=== PATIENT | male | born 1955 | race Caucasian/White ===

== ENCOUNTER 2016-08-23 23:39 | Inpatient (IN) | payer MEDICAID ==
[~2016-08-23] VITALS: Ht 180.3 cm; Wt 117.0 kg
[~2016-08-23 23:39] MED LIST: ALBU18; AMIO200T33 PO; ASPI-247; CLOP75TA41 PO; FURO20TA3 PO; HYDROCODON-ACETAMINOPHEN PO; LOSA25TA9 PO; MAGN400T5 OR; MET50T PO; PANT1INJ3 PO; POTA20TA53 PO
[2016-08-24 00:27] LABS: Basophils # (auto) 0 uL; Basophils % (auto) 0.3 % (0.0-2.0); DEFINITIVE VIEW TRANSMISSION; Eosinophils # (auto) 0.1 uL; Eosinophils % (auto) 0.9 % (0.0-7.0); Hematocrit 31.1 % (41.0-53.0); Hemoglobin 9.7 g/dL (13.5-17.5); Lymphocytes # (auto) 1.1 uL; Lymphocytes % (auto) 17.3 % (10.0-50.0); Mean Corpuscular Hemoglobin 20.8 pg (28.0-32.0); Mean Corpuscular Hgb Conc. 31.2 g/dL (32.0-36.0); Mean Corpuscular Volume 66.7 fL (80.0-100.0); Mean Platelet Volume 9.4 fL (7.4-10.4); Monocytes # (auto) 0.8 uL; Monocytes % (auto) 13.1 % (0.0-12.0); Neutrophils # (auto) 4.1 uL; Neutrophils % (auto) 68.4 % (37.0-80.0); Platelet Count (auto) 189 10^3/uL (140-450); Red Cell Distribution Width 16.5 % (11.6-16.0); White Blood Cell 6.1 10^3/uL (4.4-10.8)
[2016-08-24 00:33] LABS: Albumin 3.2 g/dL (3.4-5.0); BUN/Creatinine Ratio 27.4; Magnesium 2.1 mg/dL (1.6-2.6); Potassium 4.6 mmol/L (3.5-5.1)
[2016-08-24 00:36] LABS: Bilirubin, Total 0.6 mg/dL (0.2-1.0); Total Protein 8.3 g/dL (6.4-8.2)
[2016-08-24 00:43] LABS: B-Type Natriuretic Peptide 641.32 pg/mL (0-100)
[2016-08-24] MEDS ORDERED: FUROSEMIDE 40 MG/4 ML VIAL IV ONE (01:30)
[2016-08-24 01:50] LABS: Urine Bilirubin Negative (Negative); Urine Color Yellow (Yellow); Urine Glucose TRACE mg/dL (Normal); Urine Hyaline Cast FEW /lpf (0 - 2); Urine Ketone Negative (Negative); Urine Nitrite Negative (Negative); Urine RBC 9 /hpf (0 - 3); Urine Squamous Epithelial Cell FEW /hpf (<5); Urine Urobilinogen Normal (Negative); Urine pH 5.5 (5.0-8.0)
[2016-08-24 01:52] LABS: Urine Blood 1+ /uL (Negative)
[2016-08-24] MEDS ORDERED: ACETAMINOPHEN 325 MG TAB PO PRN (06:00)
[2016-08-24] MEDS ORDERED: DEXTROSE (50%) 50ML SYRG IV PRN (06:00)
[2016-08-24] MEDS ORDERED: ONDANSETRON HCL 4 MG/2 ML VIAL IV PRN (06:00)
[2016-08-24] MEDS ORDERED: FUROSEMIDE 40 MG TAB PO SCH (06:00)
[2016-08-24] MEDS: ACCU-CHEK COMFORT CURVE STRIP VI SCH ×3 (06:30→17:47)
[2016-08-24] MEDS: InsuLIN REG 1unit/0.01ml Soln (100units/ml) SC SCH ×3 (06:32→17:52)
[2016-08-24] MEDS: ALBUTEROL SULF 2.5 MG/0.5ML(0.5%) NEB SOLN NEB PRN ×2 (06:35→19:38)
[2016-08-24 09:49] VITALS: BP 126/82
[2016-08-24] MEDS: CLOPIDOGREL BISULFATE 75 MG TAB PO SCH (09:52)
[2016-08-24] MEDS: METOPROLOL TARTRATE 25 MG TAB PO SCH ×2 (09:53→21:30)
[2016-08-24] MEDS: AMIODARONE HCL 200 MG TAB PO SCH (09:53)
[2016-08-24] MEDS: POTASSIUM CHL 10 Meq TABLET PO SCH ×2 (09:53→21:30)
[2016-08-24] MEDS: LOSARTAN POTASSIUM 25 MG TAB PO SCH (09:54)
[2016-08-24] MEDS: PANTOPRAZOLE 40 MG TAB PO SCH (09:54)
[2016-08-24] MEDS: ASPirin 81 mg TAB PO SCH (09:54)
[2016-08-24] MEDS ORDERED: ENOXAPARIN SOD 40 MG/0.4 ML SYRINGE SC SCH (10:00)
[2016-08-24 17:00] VITALS: BP 120/73
[2016-08-24] MEDS: HYDROcodone-ACET 5/325MG TAB PO PRN (17:44)
[2016-08-24] MEDS: FUROSEMIDE 40 MG/4 ML VIAL IV SCH (17:45)
[2016-08-24 22:00] VITALS: BP 121/71
[2016-08-25] MEDS: ACCU-CHEK COMFORT CURVE STRIP VI SCH ×2 (00:48→06:01)
[2016-08-25] MEDS: InsuLIN REG 1unit/0.01ml Soln (100units/ml) SC SCH ×2 (00:49→06:00)
[2016-08-25] MEDS: HYDROcodone-ACET 5/325MG TAB PO PRN ×2 (05:01→09:53)
[2016-08-25 05:20] VITALS: BP 123/68
[2016-08-25] MEDS: FUROSEMIDE 40 MG/4 ML VIAL IV SCH (05:58)
[2016-08-25 06:35] LABS: Basophils # (auto) 0 uL; Basophils % (auto) 0.2 % (0.0-2.0); DEFINITIVE VIEW TRANSMISSION; Eosinophils # (auto) 0.1 uL; Eosinophils % (auto) 1.4 % (0.0-7.0); Hematocrit 30.4 % (41.0-53.0); Hemoglobin 9.4 g/dL (13.5-17.5); Lymphocytes # (auto) 0.9 uL; Lymphocytes % (auto) 18.2 % (10.0-50.0); Mean Corpuscular Hemoglobin 20.6 pg (28.0-32.0); Mean Corpuscular Hgb Conc. 30.9 g/dL (32.0-36.0); Mean Corpuscular Volume 66.8 fL (80.0-100.0); Mean Platelet Volume 9.3 fL (7.4-10.4); Monocytes # (auto) 0.6 uL; Neutrophils # (auto) 3.4 uL; Neutrophils % (auto) 69.2 % (37.0-80.0); Platelet Count (auto) 204 10^3/uL (140-450); Red Cell Distribution Width 16.6 % (11.6-16.0)
[2016-08-25] MEDS: ALBUTEROL SULF 2.5 MG/0.5ML(0.5%) NEB SOLN NEB PRN ×2 (06:36→10:00)
[2016-08-25 06:45] LABS: Albumin 3.3 g/dL (3.4-5.0); BUN/Creatinine Ratio 32.7; Bilirubin, Total 0.7 mg/dL (0.2-1.0); Calcium 8.8 mg/dL (8.5-10.1); Potassium 4.3 mmol/L (3.5-5.1); Total Protein 8.3 g/dL (6.4-8.2)
[2016-08-25 06:52] LABS: B-Type Natriuretic Peptide 323.08 pg/mL (0-100); Temperature: 21.5 C (20.0-25.0)
[2016-08-25 08:38] VITALS: BP 131/68
[2016-08-25] MEDS: POTASSIUM CHL 10 Meq TABLET PO SCH (09:46)
[2016-08-25] MEDS: METOPROLOL TARTRATE 25 MG TAB PO SCH (09:46)
[2016-08-25] MEDS: CLOPIDOGREL BISULFATE 75 MG TAB PO SCH (09:46)
[2016-08-25] MEDS: PANTOPRAZOLE 40 MG TAB PO SCH (09:46)
[2016-08-25] MEDS: ASPirin 81 mg TAB PO SCH (09:47)
[2016-08-25] MEDS: AMIODARONE HCL 200 MG TAB PO SCH (09:47)
[2016-08-25] MEDS: LOSARTAN POTASSIUM 25 MG TAB PO SCH (09:47)
[2016-08-25 10:47] VITALS: BP 131/68
== END 2016-08-25 11:12 | disposition home or self-care (01) | DRG 194 ==
LOC: ER 23:41 → OVERFLOW 23:42 → EAST 08-24 07:56 → WEST WING 08-24 09:20
PROVIDERS: ADMIT Nurse Practitioner; ATTEND Internal Medicine
DX: I13.0 Hypertensive heart and chronic kidney disease with heart failure and stage 1 through stage 4 chronic kidney disease, or unspecified chronic kidney disease (principal); E11.22 Type 2 diabetes mellitus with diabetic chronic kidney disease; N18.3 Chronic kidney disease, stage 3 (moderate); E11.65 Type 2 diabetes mellitus with hyperglycemia; I50.43 Acute on chronic combined systolic (congestive) and diastolic (congestive) heart failure; E66.9 Obesity, unspecified; D63.8 Anemia in other chronic diseases classified elsewhere; R16.1 Splenomegaly, not elsewhere classified; E78.00 Pure hypercholesterolemia, unspecified; K40.91 Unilateral inguinal hernia, without obstruction or gangrene, recurrent; K80.20 Calculus of gallbladder without cholecystitis without obstruction; I25.10 Atherosclerotic heart disease of native coronary artery without angina pectoris; Z68.36 Body mass index [BMI] 36.0-36.9, adult; I25.2 Old myocardial infarction; Z95.0 Presence of cardiac pacemaker; Z95.810 Presence of automatic (implantable) cardiac defibrillator; Z82.49 Family history of ischemic heart disease and other diseases of the circulatory system; Z88.8 Allergy status to other drugs, medicaments and biological substances; Z79.82 Long term (current) use of aspirin; Z79.899 Other long term (current) drug therapy; Z87.891 Personal history of nicotine dependence; Z95.1 Presence of aortocoronary bypass graft
CPT/HCPCS: 36415; 71010; 74176; 80053; 81001; 82962; 83036; 83735; 83880; 84484; 85025; 85049; 93005; 93306; 94640; 94761; 96374; J1815

== ENCOUNTER 2016-12-22 21:02 | Emergency (ER) | payer MEDICAID ==
[~2016-12-22] VITALS: Ht 177.8 cm; Wt 104.3 kg
[~2016-12-22 21:02] MED LIST changes: -AMIO200T33 PO
[2016-12-22 21:48] LABS: Basophils # (auto) 0 uL; Basophils % (auto) 0.3 % (0.0-2.0); DEFINITIVE VIEW TRANSMISSION; Eosinophils # (auto) 0.1 uL; Eosinophils % (auto) 0.9 % (0.0-7.0); Hematocrit 26.3 % (41.0-53.0); Hemoglobin 8.2 g/dL (13.5-17.5); Lymphocytes # (auto) 0.8 uL; Lymphocytes % (auto) 10.4 % (10.0-50.0); Mean Corpuscular Hemoglobin 19.1 pg (28.0-32.0); Mean Corpuscular Hgb Conc. 31.3 g/dL (32.0-36.0); Mean Corpuscular Volume 61.1 fL (80.0-100.0); Mean Platelet Volume 8.5 fL (7.4-10.4); Monocytes # (auto) 0.7 uL; Monocytes % (auto) 9.2 % (0.0-12.0); Neutrophils # (auto) 6.1 uL; Neutrophils % (auto) 79.2 % (37.0-80.0); Platelet Count (auto) 296 10^3/uL (140-450); Red Cell Distribution Width 17.6 % (11.6-16.0); White Blood Cell 7.7 10^3/uL (4.4-10.8)
[2016-12-22 22:21] LABS: Albumin 3.1 g/dL (3.4-5.0); Alkaline Phosphatase 94 U/L (45-117); Anion Gap 7 (5-15); Aspartate Aminotransferase 15 U/L (15-37); BUN/Creatinine Ratio 29.8; Bilirubin, Total 0.4 mg/dL (0.2-1.0); Blood Urea Nitrogen 54 mg/dL (7-18); Calcium 8.2 mg/dL (8.5-10.1); Carbon Dioxide 29 mmol/L (21-32); Chloride 101 mmol/L (98-107); GFR African American 50 mL/min; GFR Non-African American 41 mL/min; Glucose 230 mg/dL (74-106); Magnesium 2.3 mg/dL (1.6-2.6); Potassium 4.9 mmol/L (3.5-5.1); Sodium 137 mmol/L (136-145); Total Protein 7.9 g/dL (6.4-8.2)
[2016-12-22 22:51] LABS: Platelet Estimate Adequate
[2016-12-22 22:52] LABS: Hypochromia Moderate; Microcytosis Marked; Ovalocytes MODERATE
[2016-12-22] MEDS ORDERED: cefTRIAXone 1GM/50ML D5W 50 ML IV ONE (23:30)
[2016-12-22 23:46] LABS: INR 1.13 (0.9-1.15); Prothrombin Time 12.3 sec (9.37-12.3)
[2016-12-23] MEDS ORDERED: FUROSEMIDE 20 MG/2 ML VIAL IV ONE
[2016-12-23 00:16] LABS: B-Type Natriuretic Peptide 356.05 pg/mL (0-100); Temperature: 23.3 C (20.0-25.0)
[2016-12-23] MEDS ORDERED: FUROSEMIDE 40 MG/4 ML VIAL IV ONE (01:15)
[2016-12-23] MEDS ORDERED: IPRATROPIUM BROM 0.5 MG/2.5ML INH SOL NEB ONE (03:30)
[2016-12-23] MEDS ORDERED: ALBUTEROL SULF 2.5 MG/0.5ML(0.5%) NEB SOLN NEB ONE (03:30)
[2016-12-23 04:54] VITALS: BP 145/70
== END 2016-12-23 04:35 | disposition home or self-care (01) ==
LOC: EDBD 21:02 → ER 21:14
DX: I13.0 Hypertensive heart and chronic kidney disease with heart failure and stage 1 through stage 4 chronic kidney disease, or unspecified chronic kidney disease (principal); E11.22 Type 2 diabetes mellitus with diabetic chronic kidney disease; N18.9 Chronic kidney disease, unspecified; I50.43 Acute on chronic combined systolic (congestive) and diastolic (congestive) heart failure; N17.9 Acute kidney failure, unspecified; M10.9 Gout, unspecified; E78.5 Hyperlipidemia, unspecified; I25.2 Old myocardial infarction; Z86.73 Personal history of transient ischemic attack (TIA), and cerebral infarction without residual deficits; Z95.1 Presence of aortocoronary bypass graft; Z98.61 Coronary angioplasty status; Z87.891 Personal history of nicotine dependence
CPT/HCPCS: 36415; 71010; 80053; 83735; 83880; 84484; 84550; 85025; 85379; 85610; 85730; 93005; 93970; 94640; 96365; 96375; 99285; J0696; J1940

== ENCOUNTER 2017-09-21 01:28 | Inpatient (IN) | payer MEDICAID ==
[~2017-09-21] VITALS: Ht 185.4 cm; Wt 108.2 kg
[~2017-09-21 01:28] MED LIST changes: -ALBU18; +ATOR20TA PO; -FURO20TA3 PO; -HYDROCODON-ACETAMINOPHEN PO; +INSLISPI SC; +INSUINJ37 SC; +METO-75 PO; -PANT1INJ3 PO; -POTA20TA53 PO
[2017-09-21 02:00] LABS: Basophils # (auto) 0.1 uL; Eosinophils # (auto) 0.1 uL
[2017-09-21 02:01] LABS: Platelet Count (auto) 196 10^3/uL (140-450)
[2017-09-21 02:08] LABS: Basophils % (auto) 1.1 % (0.0-2.0); Eosinophils % (auto) 0.8 % (0.0-7.0); Lymphocytes % (auto) 13.9 % (10.0-50.0); Monocytes % (auto) 10.2 % (0.0-12.0); Neutrophils # (auto) 5.2 uL
[2017-09-21 02:09] LABS: Hematocrit 26.6 % (41.0-53.0); Hemoglobin 9.1 g/dL (13.5-17.5); Mean Corpuscular Hemoglobin 18.5 pg (28.0-32.0); Mean Corpuscular Hgb Conc. 30.6 g/dL (32.0-36.0); Mean Corpuscular Volume 60.2 fL (80.0-100.0); Monocytes # (auto) 0.7 uL; Red Blood Cells 4.92 10^6/uL (4.5-5.90); Red Cell Distribution Width 19.7 % (11.8-14.3)
[2017-09-21 02:18] LABS: INR 1.1 (0.9-1.15)
[2017-09-21 02:19] LABS: Albumin 3.2 g/dL (3.4-5.0); Anion Gap 2 (5-15); Aspartate Aminotransferase 23 U/L (15-37); BUN/Creatinine Ratio 26.8; Blood Urea Nitrogen 53 mg/dL (7-18); Calcium 7.7 mg/dL (8.5-10.1); Carbon Dioxide 29 mmol/L (21-32); Chloride 106 mmol/L (98-107); GFR African American 45 mL/min; GFR Non-African American 37 mL/min; Glucose 236 mg/dL (74-106); Magnesium 2.5 mg/dL (1.6-2.6); Potassium 5.5 mmol/L (3.5-5.1); Sodium 137 mmol/L (136-145)
[2017-09-21 02:24] LABS: Alanine Aminotransferase 25 U/L (16-61); Alkaline Phosphatase 150 U/L (45-117); Bilirubin, Total 0.3 mg/dL (0.2-1.0)
[2017-09-21 04:40] LABS: Urine Bacteria NONE SEEN /hpf (None Seen); Urine Blood TRACE /uL (Negative); Urine Hyaline Cast FEW /lpf (0 - 2); Urine Mucus FEW (None Seen); Urine Specific Gravity 1.014 (1.001-1.035); Urine WBC 1 /hpf (0 - 3)
[2017-09-21] MEDS ORDERED: FUROSEMIDE 40 MG/4 ML VIAL IV ONE (06:45)
[2017-09-21] MEDS ORDERED: DEXTROSE (50%) 50ML SYRG IV ONE (07:45)
[2017-09-21] MEDS ORDERED: SODIUM BICARBONATE 8.4 % INJ 50ML VIAL IV ONE (07:45)
[2017-09-21] MEDS ORDERED: CALCIUM GLUC 4.65meq/50ml D5AE 50 ML IV ONE (07:45)
[2017-09-21] MEDS ORDERED: InsuLIN REG 1unit/0.01ml Soln (100units/ml) IV ONE (07:45)
[2017-09-21] MEDS ORDERED: HYDROcodone-ACET 5/325MG TAB PO PRN (08:30)
[2017-09-21] MEDS ORDERED: TEMAZEPAM 15 MG CAP PO PRN (08:30)
[2017-09-21] MEDS ORDERED: LACTULOSE 20Gm/30ML SOLN PO PRN (08:30)
[2017-09-21] MEDS ORDERED: NITROGLYCERIN 0.4 MG SL TAB SL PRN (08:30)
[2017-09-21] MEDS ORDERED: PROMETHAZINE HCL 25 MG/ML 1ML IV PRN (08:30)
[2017-09-21] MEDS ORDERED: MORPHINE SULFATE 4 MG/ML SYR/VIAL IV PRN ×2 (08:30)
[2017-09-21] MEDS ORDERED: DEXTROSE (50%) 50ML SYRG IV PRN (08:30)
[2017-09-21] MEDS ORDERED: LORazepam 0.5 MG TAB PO PRN (08:30)
[2017-09-21] MEDS ORDERED: ALBUTEROL SULF 2.5 MG/0.5ML(0.5%) NEB SOLN NEB PRN (08:30)
[2017-09-21] MEDS ORDERED: ACETAMINOPHEN 500 MG TAB PO PRN (08:30)
[2017-09-21] MEDS ORDERED: INSLANTI SC (08:42)
[2017-09-21] MEDS ORDERED: BUME1TAB28 PO (08:44)
[2017-09-21 09:24] LABS: Folate (Folic Acid) 14.65 ng/mL (5.38-24)
[2017-09-21 09:30] VITALS: BP 127/73
[2017-09-21] MEDS ORDERED: METOLAZONE 5 MG TAB PO SCH (10:00)
[2017-09-21] MEDS ORDERED: ASPirin 325 MG TAB PO SCH (10:00)
[2017-09-21] MEDS: INSULIN LANTUS (GLARGINE) 1 /0.01ml (100units/ml) SC SCH ×3 (10:00→21:36)
[2017-09-21] MEDS ORDERED: FUROSEMIDE 40 MG/4 ML VIAL IV SCH (10:00)
[2017-09-21] MEDS ORDERED: CLOPIDOGREL BISULFATE 75 MG TAB PO SCH (10:00)
[2017-09-21] MEDS ORDERED: LOSARTAN POTASSIUM 25 MG TAB PO SCH (10:00)
[2017-09-21] MEDS ORDERED: ENOXAPARIN SOD 40 MG/0.4 ML SYRINGE SC SCH (10:00)
[2017-09-21] MEDS: MAGNESIUM OXIDE 400 MG TAB PO SCH ×3 (10:46→21:22)
[2017-09-21] MEDS: METOPROLOL TARTRATE 50 MG TAB PO SCH ×2 (10:47→22:10)
[2017-09-21] MEDS: IPRATROPIUM BROM 0.5 MG/2.5ML INH SOL NEB SCH ×2 (12:06→19:42)
[2017-09-21] MEDS: ALBUTEROL SULF 2.5 MG/0.5ML(0.5%) NEB SOLN NEB SCH ×2 (12:06→19:42)
[2017-09-21] MEDS: ACCU-CHEK COMFORT CURVE STRIP VI SCH ×3 (12:07→21:22)
[2017-09-21] MEDS: InsuLIN REG 1unit/0.01ml Soln (100units/ml) SC SCH ×3 (12:12→21:35)
[2017-09-21 15:08] VITALS: BP 103/53
[2017-09-21 15:44] LABS: BUN/Creatinine Ratio 29.8; Potassium 4.9 mmol/L (3.5-5.1)
[2017-09-21 16:30] VITALS: BP 129/68
[2017-09-21] MEDS: FUROSEMIDE 40 MG/4 ML VIAL IV SCH (17:17)
[2017-09-21] MEDS ORDERED: ATORVASTATIN 20 MG TAB PO SCH (18:00)
[2017-09-21 22:28] LABS: Alcohol, Urine < 3.0 mg/dL (0-5); Amphetamine Screen, Urine NEGATIVE (NEGATIVE); Barbiturate Scree,Urine NEGATIVE (NEGATIVE); Benzodiazephine Screen, Urine NEGATIVE (NEGATIVE); Cannabinoid Screen, Urine NEGATIVE (NEGATIVE); Cocaine Screen, Urine NEGATIVE (NEGATIVE); Opiate Scree,Urine NEGATIVE (NEGATIVE); Phencyclidine Screen, Urine NEGATIVE (NEGATIVE)
[2017-09-22 05:00] VITALS: BP 118/69
[2017-09-22] MEDS: FUROSEMIDE 40 MG/4 ML VIAL IV SCH (05:34)
[2017-09-22] MEDS: ACCU-CHEK COMFORT CURVE STRIP VI SCH (05:49)
[2017-09-22] MEDS: InsuLIN REG 1unit/0.01ml Soln (100units/ml) SC SCH (05:49)
[2017-09-22 06:27] LABS: Basophils # (auto) 0.1 uL; Eosinophils # (auto) 0.1 uL; Mean Corpuscular Hemoglobin 18.4 pg (28.0-32.0); Monocytes # (auto) 0.7 uL; Neutrophils # (auto) 5.2 uL; Nucleated Red Blood Cells % 0.1 %; White Blood Cell 7.3 10^3/uL (4.4-10.8)
[2017-09-22 06:30] LABS: Basophils % (auto) 0.9 % (0.0-2.0); Eosinophils % (auto) 1.7 % (0.0-7.0); Hematocrit 31.6 % (41.0-53.0); Hemoglobin 9.4 g/dL (13.5-17.5); Lymphocytes # (auto) 1.2 uL; Lymphocytes % (auto) 16.5 % (10.0-50.0); Mean Corpuscular Hgb Conc. 29.8 g/dL (32.0-36.0); Mean Corpuscular Volume 61.6 fL (80.0-100.0); Monocytes % (auto) 10.2 % (0.0-12.0); Neutrophils % (auto) 70.7 % (37.0-80.0); Platelet Count (auto) 212 10^3/uL (140-450); Red Blood Cells 5.14 10^6/uL (4.5-5.90)
[2017-09-22 06:54] LABS: Albumin 3.1 g/dL (3.4-5.0); BUN/Creatinine Ratio 32.9; Bilirubin, Total 0.5 mg/dL (0.2-1.0); Calcium 8.3 mg/dL (8.5-10.1); Potassium 5.1 mmol/L (3.5-5.1); Total Protein 8.1 g/dL (6.4-8.2)
[2017-09-22] MEDS: ALBUTEROL SULF 2.5 MG/0.5ML(0.5%) NEB SOLN NEB SCH ×2 (07:06)
[2017-09-22] MEDS: IPRATROPIUM BROM 0.5 MG/2.5ML INH SOL NEB SCH ×2 (07:06)
[2017-09-22 07:20] VITALS: BP 118/69
== END 2017-09-22 07:13 | disposition left against medical advice (07) | DRG 47 ==
LOC: EDBD 01:28 → ER 01:28 → TELE 01:29 → TELE-EAST 17:04
PROVIDERS: ADMIT Internal Medicine; ATTEND Internal Medicine
DX: G45.9 Transient cerebral ischemic attack, unspecified (principal); N17.1 Acute kidney failure with acute cortical necrosis; I13.0 Hypertensive heart and chronic kidney disease with heart failure and stage 1 through stage 4 chronic kidney disease, or unspecified chronic kidney disease; E11.22 Type 2 diabetes mellitus with diabetic chronic kidney disease; I50.9 Heart failure, unspecified; E11.65 Type 2 diabetes mellitus with hyperglycemia; E83.51 Hypocalcemia; E87.5 Hyperkalemia; D63.8 Anemia in other chronic diseases classified elsewhere; E78.5 Hyperlipidemia, unspecified; F17.210 Nicotine dependence, cigarettes, uncomplicated; H91.90 Unspecified hearing loss, unspecified ear; I25.10 Atherosclerotic heart disease of native coronary artery without angina pectoris; N18.9 Chronic kidney disease, unspecified; N61.0 Mastitis without abscess; J44.9 Chronic obstructive pulmonary disease, unspecified; Z82.49 Family history of ischemic heart disease and other diseases of the circulatory system; Z95.5 Presence of coronary angioplasty implant and graft; Z95.1 Presence of aortocoronary bypass graft; Z88.8 Allergy status to other drugs, medicaments and biological substances; I25.2 Old myocardial infarction; Z79.4 Long term (current) use of insulin; Z79.899 Other long term (current) drug therapy; Z79.82 Long term (current) use of aspirin
CPT/HCPCS: 36415; 70450; 71045; 76870; 80048; 80053; 80061; 80307; 81001; 82550; 82607; 82746; 82962; 83036; 83735; 83880; 84443; 84484; 85025; 85379; 85610; 85652; 85730; 86141; 87081; 93005; 93886; 93970; 94640; 96372; 96374; 96375; 99291; J0610; J1815

== ENCOUNTER 2018-01-20 17:21 | Inpatient (IN) | payer MEDICAID ==
[~2018-01-20] VITALS: Ht 180.3 cm; Wt 108.0 kg
[~2018-01-20 17:21] MED LIST changes: +BUME1TAB28 PO; +INSLANTI SC
[2018-01-20] MEDS ORDERED: SODIUM CHLORIDE 0.9% 1,000 ML IVB ONE (18:10)
[2018-01-20 18:50] LABS: Basophils # (auto) 0.1 uL; Basophils % (auto) 0.8 % (0.0-2.0); Eosinophils # (auto) 0 uL; Eosinophils % (auto) 0.6 % (0.0-7.0); Hematocrit 20.4 % (41.0-53.0); Lymphocytes # (auto) 0.8 uL; Lymphocytes % (auto) 10.4 % (10.0-50.0); Mean Corpuscular Hemoglobin 17.2 pg (28.0-32.0); Mean Corpuscular Volume 57.2 fL (80.0-100.0); Monocytes # (auto) 0.8 uL; Monocytes % (auto) 11.3 % (0.0-12.0); Neutrophils # (auto) 5.5 uL; Neutrophils % (auto) 76.9 % (37.0-80.0); Nucleated Red Blood Cells % 0.1 %; Platelet Count (auto) 176 10^3/uL (140-450); Red Blood Cells 3.57 10^6/uL (4.5-5.90); Red Cell Distribution Width 17.4 % (11.8-14.3); White Blood Cell 7.2 10^3/uL (4.4-10.8)
[2018-01-20 18:54] LABS: Alanine Aminotransferase 21 U/L (16-61); Albumin 3.2 g/dL (3.4-5.0); Alkaline Phosphatase 131 U/L (45-117); Anion Gap 8 (5-15); Aspartate Aminotransferase 12 U/L (15-37); BUN/Creatinine Ratio 45.8; Bilirubin, Total 0.3 mg/dL (0.2-1.0); Calcium 8.1 mg/dL (8.5-10.1); Carbon Dioxide 22 mmol/L (21-32); Chloride 101 mmol/L (98-107); GFR African American 44 mL/min; GFR Non-African American 36 mL/min; Glucose 313 mg/dL (74-106); Magnesium 2.9 mg/dL (1.6-2.6); Sodium 131 mmol/L (136-145); Total Protein 7.9 g/dL (6.4-8.2)
[2018-01-20 18:56] LABS: Hemoglobin 6.1 g/dL (13.5-17.5)
[2018-01-20 18:57] LABS: Blood Urea Nitrogen 92 mg/dL (7-18); Potassium 5.7 mmol/L (3.5-5.1)
[2018-01-20 19:23] LABS: Urine Bacteria NONE SEEN /hpf (None Seen); Urine Blood Negative /uL (Negative); Urine Specific Gravity 1.011 (1.001-1.035); Urine WBC 6 /hpf (0 - 3)
[2018-01-20 19:23] LABS: INR 1.13 (0.9-1.15); Partial Thromboplastin Time 27.1 sec (23.78-33.04)
[2018-01-20] MEDS ORDERED: MORPHINE SULF INJ 2 MG/ML SYRINGE 1ML IV PRN ×2 (19:45)
[2018-01-20] MEDS ORDERED: LACTULOSE 20Gm/30ML SOLN PO PRN (19:45)
[2018-01-20] MEDS ORDERED: ACETAMINOPHEN 500 MG TAB PO PRN (19:45)
[2018-01-20] MEDS ORDERED: LORazepam 0.5 MG TAB PO PRN (19:45)
[2018-01-20] MEDS ORDERED: HYDROcodone-ACET 5/325MG TAB PO PRN (19:45)
[2018-01-20] MEDS ORDERED: NITROGLYCERIN 0.4 MG SL TAB SL PRN (19:45)
[2018-01-20] MEDS ORDERED: PROMETHAZINE HCL 25 MG/ML 1ML IV PRN (19:45)
[2018-01-20] MEDS ORDERED: PANTOPRAZOLE 40 MG/10 ML VIAL IV ONE (19:45)
[2018-01-20] MEDS ORDERED: DEXTROSE (50%) 50ML SYRG IV PRN (19:45)
[2018-01-20] MEDS: ACCU-CHEK COMFORT CURVE STRIP VI SCH (20:00)
[2018-01-20] MEDS: InsuLIN REG 1unit/0.01ml Soln (100units/ml) SC SCH (20:00)
[2018-01-20] MEDS ORDERED: SODIUM POLYSTYRENE SULF 15GM/60ML SUSP PO SCH (21:00)
[2018-01-20] MEDS ORDERED: cefTRIAXone 1GM/10ml IVPUSH 10 ML IV SCH (21:00)
[2018-01-20 21:31] VITALS: BP 129/72
[2018-01-20] MEDS: PANTOPRAZOLE 40 MG TAB PO SCH (21:40)
[2018-01-20 21:46] VITALS: BP 140/76
[2018-01-20] MEDS: METOPROLOL TARTRATE 50 MG TAB PO SCH (22:00)
[2018-01-20] MEDS: INSULIN LANTUS (GLARGINE) 1 /0.01ml (100units/ml) SC SCH (22:00)
[2018-01-20] MEDS: TEMAZEPAM 15 MG CAP PO PRN ×2 (22:00→23:10)
[2018-01-20] MEDS: FUROSEMIDE 40 MG/4 ML VIAL IV SCH (22:11)
[2018-01-20 22:41] LABS: CRP High Sensitivity 0.24 mg/dL (< 0.3)
[2018-01-20 23:18] VITALS: BP 148/69
[2018-01-20 23:30] VITALS: BP 142/72
[2018-01-21] VITALS (9 sets, daily range): BP systolic 109–147; BP diastolic 65–79
[2018-01-21] MEDS ORDERED: MORPHINE SULFATE 4 MG/ML SYR/VIAL ONE (01:10)
[2018-01-21] MEDS ORDERED: diphenhdrAMINE HCL 50 MG/1 ML VL IV ONE (02:15)
[2018-01-21] MEDS: InsuLIN REG 1unit/0.01ml Soln (100units/ml) SC SCH ×5 (04:00→16:20)
[2018-01-21] MEDS: ACCU-CHEK COMFORT CURVE STRIP VI SCH ×5 (04:00→16:19)
[2018-01-21] MEDS ORDERED: HALOPERIDOL LACTATE 5 MG/ML INJ VIAL IM ONE (05:00)
[2018-01-21] MEDS ORDERED: MAGNESIUM OXIDE 400 MG TAB PO SCH (05:15)
[2018-01-21] MEDS: BUMETANIDE 1 MG TAB PO SCH ×2 (05:26→10:00)
[2018-01-21 07:54] LABS: Basophils # (auto) 0 uL; Eosinophils # (auto) 0.1 uL; Monocytes # (auto) 0.8 uL; Nucleated Red Blood Cells % 0.1 %; White Blood Cell 7.9 10^3/uL (4.4-10.8)
[2018-01-21 07:57] LABS: Basophils % (auto) 0.6 % (0.0-2.0); Eosinophils % (auto) 0.7 % (0.0-7.0); Hematocrit 28.9 % (41.0-53.0); Hemoglobin 9.4 g/dL (13.5-17.5); Lymphocytes # (auto) 0.6 uL; Lymphocytes % (auto) 8.1 % (10.0-50.0); Mean Corpuscular Hemoglobin 20.8 pg (28.0-32.0); Mean Corpuscular Hgb Conc. 32.5 g/dL (32.0-36.0); Monocytes % (auto) 10.3 % (0.0-12.0); Neutrophils # (auto) 6.4 uL; Neutrophils % (auto) 80.3 % (37.0-80.0); Platelet Count (auto) 186 10^3/uL (140-450); Red Blood Cells 4.51 10^6/uL (4.5-5.90)
[2018-01-21 08:10] LABS: Red Cell Distribution Width 26.4 % (11.8-14.3)
[2018-01-21 08:11] LABS: Albumin 3.3 g/dL (3.4-5.0); BUN/Creatinine Ratio 43.2; Bilirubin, Total 2.2 mg/dL (0.2-1.0); Potassium 4.4 mmol/L (3.5-5.1); Total Protein 7.9 g/dL (6.4-8.2)
[2018-01-21] MEDS ORDERED: NITROGLYCERIN 0.2MG/HR TOPICAL PATCH TD SCH (10:00)
[2018-01-21] MEDS: METOPROLOL TARTRATE 50 MG TAB PO SCH (10:00)
[2018-01-21] MEDS: INSULIN LANTUS (GLARGINE) 1 /0.01ml (100units/ml) SC SCH (10:00)
[2018-01-21] MEDS ORDERED: METOLAZONE 5 MG TAB PO SCH (10:00)
[2018-01-21] MEDS: PANTOPRAZOLE 40 MG TAB PO SCH (10:00)
[2018-01-21] MEDS ORDERED: ENALAPRIL MALEATE 2.5 MG TAB PO SCH (10:00)
[2018-01-21] MEDS ORDERED: LOSARTAN POTASSIUM 25 MG TAB PO SCH (10:00)
[2018-01-21] MEDS ORDERED: CLOPIDOGREL BISULFATE 75 MG TAB PO SCH (10:00)
[2018-01-21] MEDS: FUROSEMIDE 40 MG/4 ML VIAL IV SCH (10:29)
[2018-01-21 12:52] LABS: Hemoglobin 9.9 g/dL (13.5-17.5)
[2018-01-21] MEDS ORDERED: ATORVASTATIN 20 MG TAB PO SCH (18:00)
[2018-01-21] MEDS ORDERED: cefTRIAXone 1GM/10ml IVPUSH 10 ML IV SCH (21:00)
== END 2018-01-21 17:30 | disposition left against medical advice (07) | DRG 253 ==
LOC: EDBD 17:21 → ER 17:21 → TELE 17:22
PROVIDERS: ADMIT Internal Medicine; ATTEND Internal Medicine
PROC: 30233N1 Transfusion of Nonautologous Red Blood Cells into Peripheral Vein, Percutaneous Approach (ICD-10-PCS; principal; 2018-01-20)
DX: K92.2 Gastrointestinal hemorrhage, unspecified (principal); I50.41 Acute combined systolic (congestive) and diastolic (congestive) heart failure; N17.9 Acute kidney failure, unspecified; E11.21 Type 2 diabetes mellitus with diabetic nephropathy; N18.3 Chronic kidney disease, stage 3 (moderate); D63.1 Anemia in chronic kidney disease; E11.65 Type 2 diabetes mellitus with hyperglycemia; I13.0 Hypertensive heart and chronic kidney disease with heart failure and stage 1 through stage 4 chronic kidney disease, or unspecified chronic kidney disease; E11.22 Type 2 diabetes mellitus with diabetic chronic kidney disease; E78.5 Hyperlipidemia, unspecified; E87.5 Hyperkalemia; F17.210 Nicotine dependence, cigarettes, uncomplicated; E87.1 Hypo-osmolality and hyponatremia; E87.6 Hypokalemia; N39.0 Urinary tract infection, site not specified; Z53.21 Procedure and treatment not carried out due to patient leaving prior to being seen by health care provider; F41.9 Anxiety disorder, unspecified; I25.10 Atherosclerotic heart disease of native coronary artery without angina pectoris; J44.9 Chronic obstructive pulmonary disease, unspecified; K59.00 Constipation, unspecified; Z79.4 Long term (current) use of insulin; I25.2 Old myocardial infarction; Z82.49 Family history of ischemic heart disease and other diseases of the circulatory system; Z95.0 Presence of cardiac pacemaker; Z95.1 Presence of aortocoronary bypass graft; Z95.5 Presence of coronary angioplasty implant and graft; Z95.810 Presence of automatic (implantable) cardiac defibrillator
CPT/HCPCS: 36415; 36430; 71045; 80053; 81001; 82150; 82378; 82550; 82962; 83036; 83605; 83690; 83735; 83880; 84443; 84484; 85014; 85018; 85025; 85045; 85610; 85652; 85730; 86141; 86850; 86900; 86901; 86920; 87040; 93005; 96361; 96372; 96374; 96375; 99291; C9113; J1815

== ENCOUNTER 2018-07-05 07:57 | Emergency (ER) | payer MEDICAID ==
[~2018-07-05] VITALS: Ht 180.3 cm; Wt 111.1 kg
[~2018-07-05 07:57] MED LIST changes: -ASPI-247; +ASPI-498 PO; -INSLANTI SC; +LOSA25TA40 PO; -LOSA25TA9 PO; -METO-75 PO
[2018-07-05 09:32] LABS: Basophils # (auto) 0.1 uL; Hematocrit 24.4 % (41.0-53.0); Lymphocytes # (auto) 0.9 uL; Mean Corpuscular Volume 57.2 fL (80.0-100.0); Monocytes # (auto) 0.7 uL; Neutrophils % (auto) 77.3 % (37.0-80.0); Platelet Count (auto) 194 10^3/uL (140-450)
[2018-07-05 09:33] LABS: Basophils % (auto) 0.9 % (0.0-2.0); Eosinophils # (auto) 0.1 uL; Eosinophils % (auto) 0.8 % (0.0-7.0); Lymphocytes % (auto) 11.5 % (10.0-50.0); Mean Corpuscular Hemoglobin 16.5 pg (28.0-32.0); Mean Corpuscular Hgb Conc. 28.8 g/dL (32.0-36.0); Monocytes % (auto) 9.5 % (0.0-12.0); Neutrophils # (auto) 5.8 uL; Red Blood Cells 4.26 10^6/uL (4.5-5.90); White Blood Cell 7.5 10^3/uL (4.4-10.8)
[2018-07-05 09:44] LABS: INR 1.15 (0.9-1.15); Partial Thromboplastin Time 27.9 sec (23.78-33.04); Prothrombin Time 12.2 sec (9.27-12.13)
[2018-07-05 09:49] LABS: Albumin 3.3 g/dL (3.4-5.0); BUN/Creatinine Ratio 43.1; Calcium 7.6 mg/dL (8.5-10.1); Potassium 4.8 mmol/L (3.5-5.1)
[2018-07-05 09:51] LABS: Bilirubin, Total 0.4 mg/dL (0.2-1.0); Total Protein 8.3 g/dL (6.4-8.2)
[2018-07-05 10:07] LABS: Red Cell Distribution Width 21.4 % (11.8-14.3)
[2018-07-05 10:25] VITALS: BP 134/77
== END 2018-07-05 11:22 | disposition left against medical advice (07) ==
LOC: ER 07:57
DX: R53.1 Weakness (principal); R55 Syncope and collapse; I25.810 Atherosclerosis of coronary artery bypass graft(s) without angina pectoris; E11.22 Type 2 diabetes mellitus with diabetic chronic kidney disease; I13.0 Hypertensive heart and chronic kidney disease with heart failure and stage 1 through stage 4 chronic kidney disease, or unspecified chronic kidney disease; N18.9 Chronic kidney disease, unspecified; I50.9 Heart failure, unspecified; I25.2 Old myocardial infarction; Z87.891 Personal history of nicotine dependence; Z95.1 Presence of aortocoronary bypass graft; Z95.0 Presence of cardiac pacemaker; Z98.61 Coronary angioplasty status; Z53.29 Procedure and treatment not carried out because of patient's decision for other reasons
CPT/HCPCS: 36415; 80053; 85025; 85610; 85730; 86850; 86900; 86901; 93005

== ENCOUNTER 2020-06-10 06:20 | Inpatient (IN) | payer MEDICAID ==
[~2020-06-10] VITALS: Ht 180.3 cm; Wt 93.0 kg
[~2020-06-10 06:20] MED LIST changes: +LOSA25TA38 PO; -LOSA25TA40 PO; +MAGN400T40 OR; -MAGN400T5 OR
[2020-06-10] MEDS ORDERED: SODIUM CHLORIDE 0.9% 500 ML IV ONE (07:30)
[2020-06-10 07:43] LABS: Basophils # (auto) 0 10 ^3/uL (0-0.2); Basophils % (auto) 0.2 % (0.0-2.0); Eosinophils # (auto) 0 10 ^3/uL (0-0.8); Hematocrit 34.6 % (41.0-53.0); Monocytes # (auto) 0.6 10 ^3/uL (0-1.3)
[2020-06-10 07:45] LABS: Hemoglobin 10.8 g/dL (13.5-17.5); Lymphocytes # (auto) 0.2 10 ^3/uL (0.4-5.4); Lymphocytes % (auto) 2.9 % (10.0-50.0); Mean Corpuscular Hemoglobin 20.8 pg (28.0-32.0); Mean Corpuscular Hgb Conc. 31.3 g/dL (32.0-36.0); Mean Corpuscular Volume 66.6 fL (80.0-100.0); Neutrophils # (auto) 7.5 10 ^3/uL (1.6-8.6); Neutrophils % (auto) 89.9 % (37.0-80.0); Nucleated Red Blood Cells % 0.1 %; Platelet Count (auto) 274 10^3/uL (140-450); Red Cell Distribution Width 19.5 % (11.8-14.3); White Blood Cell 8.4 10^3/uL (4.4-10.8)
[2020-06-10 07:56] LABS: Urine Bacteria FEW /hpf (None Seen); Urine Blood 2+ /uL (Negative); Urine Hyaline Cast FEW /lpf (0 - 2); Urine Specific Gravity 1.016 (1.001-1.035); Urine WBC 10 /hpf (0 - 3)
[2020-06-10 08:00] LABS: Alanine Aminotransferase 10 U/L (16-61); Anion Gap 6 (5-15); Aspartate Aminotransferase 12 U/L (15-37); BUN/Creatinine Ratio 53.6; Calcium 7.8 mg/dL (8.5-10.1); Carbon Dioxide 29 mmol/L (21-32); Chloride 100 mmol/L (98-107); GFR African American 45 mL/min; GFR Non-African American 37 mL/min; Glucose 188 mg/dL (74-106); Magnesium 2.8 mg/dL (1.6-2.6); Potassium 5.1 mmol/L (3.5-5.1); Sodium 135 mmol/L (136-145)
[2020-06-10 08:05] LABS: Alkaline Phosphatase 118 U/L (45-117); Bilirubin, Total 0.4 mg/dL (0.2-1.0); Total Protein 7.1 g/dL (6.4-8.2)
[2020-06-10 08:07] LABS: Blood Urea Nitrogen 104 mg/dL (7-18)
[2020-06-10] MEDS ORDERED: cefTRIAXone 1GM/50ML D5W 50 ML IV ONE (08:30)
[2020-06-10] MEDS ORDERED: NITROGLYCERIN 0.4 MG SL TAB SL PRN (09:00)
[2020-06-10] MEDS ORDERED: ONDANSETRON ODT 4 MG TAB PO ONE (09:00)
[2020-06-10] MEDS ORDERED: MORPHINE SULF INJ 2 MG/ML SYRINGE 1ML IV PRN (09:00)
[2020-06-10] MEDS: MORPHINE SULF INJ 2 MG/ML SYRINGE 1ML IV PRN (09:22)
[2020-06-10] MEDS ORDERED: SODIUM CHL 0.9% 1000 ML BAG XX ONE (13:15)
[2020-06-10 22:00] VITALS: BP 148/83
[2020-06-11] MEDS: MORPHINE SULF INJ 2 MG/ML SYRINGE 1ML IV PRN (02:20)
[2020-06-11 05:28] VITALS: BP 142/77
[2020-06-11] MEDS ORDERED: SODIUM CHL 0.9% 1000 ML BAG XX ONE (07:00)
[2020-06-11 07:24] LABS: Basophils # (auto) 0 10 ^3/uL (0-0.2); Basophils % (auto) 0.1 % (0.0-2.0); Eosinophils # (auto) 0 10 ^3/uL (0-0.8); Mean Corpuscular Volume 67.9 fL (80.0-100.0); Monocytes # (auto) 0.7 10 ^3/uL (0-1.3); White Blood Cell 7.1 10^3/uL (4.4-10.8)
[2020-06-11 07:27] LABS: Eosinophils % (auto) 0.1 % (0.0-7.0); Hematocrit 33.4 % (41.0-53.0); Hemoglobin 10.2 g/dL (13.5-17.5); Lymphocytes # (auto) 0.3 10 ^3/uL (0.4-5.4); Lymphocytes % (auto) 4.8 % (10.0-50.0); Mean Corpuscular Hemoglobin 20.7 pg (28.0-32.0); Mean Corpuscular Hgb Conc. 30.5 g/dL (32.0-36.0); Neutrophils # (auto) 6.1 10 ^3/uL (1.6-8.6); Platelet Count (auto) 243 10^3/uL (140-450); Red Blood Cells 4.92 10^6/uL (4.5-5.90); Red Cell Distribution Width 19.4 % (11.8-14.3)
[2020-06-11 08:14] LABS: Albumin 2.8 g/dL (3.4-5.0); Calcium 7.6 mg/dL (8.5-10.1); Magnesium 2.8 mg/dL (1.6-2.6); Potassium 4.5 mmol/L (3.5-5.1)
[2020-06-11 08:16] LABS: BUN/Creatinine Ratio 48.2; Bilirubin, Total 0.4 mg/dL (0.2-1.0); Total Protein 6.3 g/dL (6.4-8.2)
[2020-06-11 09:00] VITALS: BP 124/73
[2020-06-11] MEDS: HYDROcodone-ACET 5/325MG TAB PO PRN (09:49)
[2020-06-11 12:45] VITALS: BP 137/70
[2020-06-11] MEDS: LACTULOSE 20Gm/30ML SOLN PO SCH ×2 (16:30→22:11)
[2020-06-11 16:41] VITALS: BP 163/78
[2020-06-11] MEDS ORDERED: ATORVASTATIN 20 MG TAB PO SCH (18:00)
[2020-06-11] MEDS ORDERED: CALCIUM CARB 500 MG CHEW TAB PO SCH (18:00)
[2020-06-11] MEDS ORDERED: EPOETIN ALFA 10,000 UNIT/1 ML VIAL SC ONE (21:00)
[2020-06-11] MEDS ORDERED: INSULIN LANTUS (GLARGINE) 1 /0.01ml (100units/ml) SC SCH (22:00)
[2020-06-11] MEDS: METOPROLOL TARTRATE 50 MG TAB PO SCH ×2 (22:00→23:02)
[2020-06-11 23:30] VITALS: BP 143/77
[2020-06-12 04:57] LABS: Basophils # (auto) 0 10 ^3/uL (0-0.2); Basophils % (auto) 0.1 % (0.0-2.0); Eosinophils # (auto) 0 10 ^3/uL (0-0.8); Eosinophils % (auto) 0.2 % (0.0-7.0); Hemoglobin 10.4 g/dL (13.5-17.5); Monocytes # (auto) 0.7 10 ^3/uL (0-1.3); Neutrophils # (auto) 5.3 10 ^3/uL (1.6-8.6); Neutrophils % (auto) 83.6 % (37.0-80.0); Platelet Count (auto) 182 10^3/uL (140-450)
[2020-06-12 05:00] LABS: Hematocrit 33.7 % (41.0-53.0); Lymphocytes # (auto) 0.4 10 ^3/uL (0.4-5.4); Lymphocytes % (auto) 5.6 % (10.0-50.0); Mean Corpuscular Hemoglobin 20.8 pg (28.0-32.0); Mean Corpuscular Hgb Conc. 30.8 g/dL (32.0-36.0); Mean Corpuscular Volume 67.5 fL (80.0-100.0); Monocytes % (auto) 10.5 % (0.0-12.0); Red Cell Distribution Width 19.2 % (11.8-14.3); White Blood Cell 6.4 10^3/uL (4.4-10.8)
[2020-06-12 05:17] LABS: Albumin 2.8 g/dL (3.4-5.0); Calcium 7.6 mg/dL (8.5-10.1); Magnesium 2.6 mg/dL (1.6-2.6); Potassium 4.2 mmol/L (3.5-5.1)
[2020-06-12 05:20] LABS: BUN/Creatinine Ratio 36.9; Bilirubin, Total 0.6 mg/dL (0.2-1.0); Total Protein 6.4 g/dL (6.4-8.2)
[2020-06-12 05:22] VITALS: BP 150/76
[2020-06-12 09:00] VITALS: BP 152/79
[2020-06-12] MEDS: INSULIN LISPRO (HUMAN) 100 UNITS/ML ML SC SCH (10:00)
[2020-06-12] MEDS ORDERED: ASPirin-EC 81 mg tab PO SCH (10:00)
[2020-06-12] MEDS ORDERED: LOSARTAN POTASSIUM 25 MG TAB PO SCH (10:00)
[2020-06-12] MEDS ORDERED: CLOPIDOGREL BISULFATE 75 MG TAB PO SCH (10:00)
[2020-06-12] MEDS: LACTULOSE 20Gm/30ML SOLN PO SCH ×2 (10:24→21:48)
[2020-06-12] MEDS: MAGNESIUM OXIDE 400 MG TAB PO SCH (10:25)
[2020-06-12] MEDS: amLODIPine BESYLATE 5 MG TAB PO SCH (10:26)
[2020-06-12] MEDS: METOPROLOL TARTRATE 50 MG TAB PO SCH ×2 (10:27→21:42)
[2020-06-12 13:00] VITALS: BP 161/82
[2020-06-12 17:00] VITALS: BP 145/78
[2020-06-12 23:25] VITALS: BP 141/79
[2020-06-13] MEDS: HYDROcodone-ACET 5/325MG TAB PO PRN (02:59)
[2020-06-13 05:55] VITALS: BP 123/64
[2020-06-13 06:33] LABS: Basophils # (auto) 0 10 ^3/uL (0-0.2); Hemoglobin 9.9 g/dL (13.5-17.5); Lymphocytes # (auto) 0.4 10 ^3/uL (0.4-5.4); Mean Corpuscular Hgb Conc. 31.6 g/dL (32.0-36.0); Neutrophils # (auto) 4.7 10 ^3/uL (1.6-8.6); White Blood Cell 5.9 10^3/uL (4.4-10.8)
[2020-06-13 06:35] LABS: Basophils % (auto) 0.2 % (0.0-2.0); Eosinophils # (auto) 0 10 ^3/uL (0-0.8); Eosinophils % (auto) 0.5 % (0.0-7.0); Hematocrit 31.3 % (41.0-53.0); Lymphocytes % (auto) 7.4 % (10.0-50.0); Mean Corpuscular Hemoglobin 21.1 pg (28.0-32.0); Mean Corpuscular Volume 66.8 fL (80.0-100.0); Monocytes # (auto) 0.7 10 ^3/uL (0-1.3); Monocytes % (auto) 11.8 % (0.0-12.0); Neutrophils % (auto) 80.1 % (37.0-80.0); Nucleated Red Blood Cells % 0.3 %; Platelet Count (auto) 167 10^3/uL (140-450); Red Blood Cells 4.69 10^6/uL (4.5-5.90)
[2020-06-13 06:56] LABS: Albumin 2.7 g/dL (3.4-5.0); Calcium 7.5 mg/dL (8.5-10.1); Potassium 3.9 mmol/L (3.5-5.1)
[2020-06-13 07:00] LABS: BUN/Creatinine Ratio 37.2; Bilirubin, Total 0.7 mg/dL (0.2-1.0); Total Protein 6.2 g/dL (6.4-8.2)
[2020-06-13] MEDS ORDERED: SODIUM CHL 0.9% 1000 ML BAG XX ONE (07:00)
[2020-06-13 09:00] VITALS: BP 137/69
[2020-06-13] MEDS: INSULIN LISPRO (HUMAN) 100 UNITS/ML ML SC SCH (10:00)
[2020-06-13] MEDS: LACTULOSE 20Gm/30ML SOLN PO SCH ×2 (10:00→22:33)
[2020-06-13] MEDS: METOPROLOL TARTRATE 50 MG TAB PO SCH ×2 (10:48→23:41)
[2020-06-13] MEDS: MAGNESIUM OXIDE 400 MG TAB PO SCH (10:49)
[2020-06-13] MEDS: amLODIPine BESYLATE 5 MG TAB PO SCH (10:49)
[2020-06-13 13:00] VITALS: BP 125/67
[2020-06-13 17:00] VITALS: BP 127/67
[2020-06-13 20:00] VITALS: BP 146/72
[2020-06-13 21:58] VITALS: BP 121/63
[2020-06-14 05:24] VITALS: BP 133/64
[2020-06-14 07:32] LABS: Basophils # (auto) 0 10 ^3/uL (0-0.2); Basophils % (auto) 0.2 % (0.0-2.0); Hemoglobin 10.3 g/dL (13.5-17.5); Lymphocytes # (auto) 0.5 10 ^3/uL (0.4-5.4); Monocytes # (auto) 0.8 10 ^3/uL (0-1.3); Neutrophils # (auto) 4.8 10 ^3/uL (1.6-8.6); Red Cell Distribution Width 19.2 % (11.8-14.3); White Blood Cell 6.2 10^3/uL (4.4-10.8)
[2020-06-14 07:36] LABS: Eosinophils # (auto) 0 10 ^3/uL (0-0.8); Eosinophils % (auto) 0.8 % (0.0-7.0); Hematocrit 32.1 % (41.0-53.0); Lymphocytes % (auto) 8.8 % (10.0-50.0); Mean Corpuscular Hemoglobin 21.4 pg (28.0-32.0); Mean Corpuscular Volume 66.9 fL (80.0-100.0); Monocytes % (auto) 13.2 % (0.0-12.0); Nucleated Red Blood Cells % 0.2 %; Platelet Count (auto) 133 10^3/uL (140-450); Red Blood Cells 4.79 10^6/uL (4.5-5.90)
[2020-06-14 07:40] LABS: Potassium 3.9 mmol/L (3.5-5.1)
[2020-06-14 07:50] LABS: Albumin 2.7 g/dL (3.4-5.0); BUN/Creatinine Ratio 20.7; Bilirubin, Total 0.7 mg/dL (0.2-1.0); Calcium 7.2 mg/dL (8.5-10.1); Total Protein 6.3 g/dL (6.4-8.2)
[2020-06-14 09:00] VITALS: BP 128/71
[2020-06-14] MEDS: LACTULOSE 20Gm/30ML SOLN PO SCH ×2 (10:00→21:43)
[2020-06-14] MEDS: METOPROLOL TARTRATE 50 MG TAB PO SCH ×2 (10:51→21:44)
[2020-06-14] MEDS: MAGNESIUM OXIDE 400 MG TAB PO SCH (10:51)
[2020-06-14] MEDS: amLODIPine BESYLATE 5 MG TAB PO SCH (10:51)
[2020-06-14] MEDS: INSULIN LISPRO (HUMAN) 100 UNITS/ML ML SC SCH (10:53)
[2020-06-14 13:00] VITALS: BP 140/68
[2020-06-14 17:00] VITALS: BP 109/58
[2020-06-14 22:00] VITALS: BP 135/72
[2020-06-15 05:00] VITALS: BP 139/76
[2020-06-15 08:09] LABS: Basophils # (auto) 0 10 ^3/uL (0-0.2); Eosinophils # (auto) 0.1 10 ^3/uL (0-0.8); Lymphocytes # (auto) 0.5 10 ^3/uL (0.4-5.4); Lymphocytes % (auto) 8.4 % (10.0-50.0); Monocytes # (auto) 0.8 10 ^3/uL (0-1.3); Platelet Count (auto) 141 10^3/uL (140-450)
[2020-06-15 08:11] LABS: Basophils % (auto) 0.5 % (0.0-2.0); Eosinophils % (auto) 0.9 % (0.0-7.0); Hematocrit 31.5 % (41.0-53.0); Hemoglobin 9.8 g/dL (13.5-17.5); Mean Corpuscular Hemoglobin 20.9 pg (28.0-32.0); Mean Corpuscular Hgb Conc. 31.1 g/dL (32.0-36.0); Mean Corpuscular Volume 67.2 fL (80.0-100.0); Monocytes % (auto) 12.5 % (0.0-12.0); Neutrophils # (auto) 4.9 10 ^3/uL (1.6-8.6); Neutrophils % (auto) 77.7 % (37.0-80.0); Nucleated Red Blood Cells % 0.2 %; Red Blood Cells 4.69 10^6/uL (4.5-5.90); Red Cell Distribution Width 18.9 % (11.8-14.3); White Blood Cell 6.3 10^3/uL (4.4-10.8)
[2020-06-15 08:30] LABS: Albumin 2.7 g/dL (3.4-5.0); Calcium 7.1 mg/dL (8.5-10.1)
[2020-06-15 08:35] LABS: BUN/Creatinine Ratio 22.8; Bilirubin, Total 0.7 mg/dL (0.2-1.0); Total Protein 6.6 g/dL (6.4-8.2)
[2020-06-15 08:57] VITALS: BP 127/73
[2020-06-15] MEDS: LACTULOSE 20Gm/30ML SOLN PO SCH ×2 (10:00→22:06)
[2020-06-15] MEDS: INSULIN LISPRO (HUMAN) 100 UNITS/ML ML SC SCH (10:29)
[2020-06-15] MEDS: MAGNESIUM OXIDE 400 MG TAB PO SCH (10:30)
[2020-06-15] MEDS: amLODIPine BESYLATE 5 MG TAB PO SCH (10:30)
[2020-06-15] MEDS: METOPROLOL TARTRATE 50 MG TAB PO SCH ×2 (10:31→22:06)
[2020-06-15] MEDS: Glucerna Carbsteady SHAKE Vanilla 8oz PO SCH ×2 (11:36→17:46)
[2020-06-15] MEDS ORDERED: ALPRAZolam 0.25 MG TAB PO PRN (11:45)
[2020-06-15] MEDS ORDERED: ZOLPIDEM TARTRATE 5 MG TAB PO PRN (11:45)
[2020-06-15 13:00] VITALS: BP 125/72
[2020-06-15 17:00] VITALS: BP 117/66
[2020-06-15 22:00] VITALS: BP 122/68
[2020-06-16 05:00] VITALS: BP 123/76
[2020-06-16 06:51] LABS: Basophils # (auto) 0 10 ^3/uL (0-0.2); Eosinophils # (auto) 0.1 10 ^3/uL (0-0.8); Hemoglobin 10.8 g/dL (13.5-17.5); Monocytes # (auto) 0.9 10 ^3/uL (0-1.3); Monocytes % (auto) 11.9 % (0.0-12.0); Platelet Count (auto) 189 10^3/uL (140-450); White Blood Cell 7.6 10^3/uL (4.4-10.8)
[2020-06-16 06:53] LABS: Basophils % (auto) 0.3 % (0.0-2.0); Eosinophils % (auto) 0.9 % (0.0-7.0); Lymphocytes # (auto) 0.6 10 ^3/uL (0.4-5.4); Lymphocytes % (auto) 7.5 % (10.0-50.0); Mean Corpuscular Hemoglobin 21.3 pg (28.0-32.0); Mean Corpuscular Hgb Conc. 31.8 g/dL (32.0-36.0); Mean Corpuscular Volume 66.9 fL (80.0-100.0); Neutrophils % (auto) 79.4 % (37.0-80.0); Nucleated Red Blood Cells % 0.1 %; Red Blood Cells 5.08 10^6/uL (4.5-5.90)
[2020-06-16] MEDS ORDERED: SODIUM CHL 0.9% 1000 ML BAG XX ONE (07:00)
[2020-06-16 07:06] LABS: Potassium 4.3 mmol/L (3.5-5.1)
[2020-06-16 07:14] LABS: Albumin 2.9 g/dL (3.4-5.0); BUN/Creatinine Ratio 21.9; Bilirubin, Total 0.8 mg/dL (0.2-1.0); Calcium 7.3 mg/dL (8.5-10.1); Total Protein 6.8 g/dL (6.4-8.2)
[2020-06-16] MEDS: Glucerna Carbsteady SHAKE Vanilla 8oz PO SCH ×3 (07:58→17:19)
[2020-06-16 09:00] VITALS: BP 130/61
[2020-06-16] MEDS: LACTULOSE 20Gm/30ML SOLN PO SCH ×2 (10:00→21:10)
[2020-06-16 13:00] VITALS: BP 130/74
[2020-06-16] MEDS: MAGNESIUM OXIDE 400 MG TAB PO SCH (13:40)
[2020-06-16] MEDS: METOPROLOL TARTRATE 50 MG TAB PO SCH ×2 (13:40→21:28)
[2020-06-16] MEDS: amLODIPine BESYLATE 5 MG TAB PO SCH (13:41)
[2020-06-16] MEDS: INSULIN LISPRO (HUMAN) 100 UNITS/ML ML SC SCH (13:42)
[2020-06-16 17:00] VITALS: BP 103/68
[2020-06-16] MEDS ORDERED: EPOETIN ALFA 4,000 UNIT/ML VL SC ONE (21:00)
[2020-06-16 21:31] LABS: INR 1.16 (0.9-1.15); Partial Thromboplastin Time 27.4 sec (23.0-31.2)
[2020-06-17] VITALS (12 sets, daily range): BP systolic 108–136; BP diastolic 57–76
[2020-06-17 07:17] LABS: Basophils # (auto) 0 10 ^3/uL (0-0.2); Monocytes # (auto) 0.9 10 ^3/uL (0-1.3); Platelet Count (auto) 153 10^3/uL (140-450); Red Cell Distribution Width 19.1 % (11.8-14.3); White Blood Cell 6.2 10^3/uL (4.4-10.8)
[2020-06-17 07:19] LABS: Basophils % (auto) 0.8 % (0.0-2.0); Eosinophils # (auto) 0 10 ^3/uL (0-0.8); Eosinophils % (auto) 0.7 % (0.0-7.0); Hematocrit 29.8 % (41.0-53.0); Hemoglobin 9.4 g/dL (13.5-17.5); Lymphocytes # (auto) 0.5 10 ^3/uL (0.4-5.4); Lymphocytes % (auto) 8.5 % (10.0-50.0); Mean Corpuscular Hemoglobin 21.4 pg (28.0-32.0); Mean Corpuscular Hgb Conc. 31.6 g/dL (32.0-36.0); Mean Corpuscular Volume 67.7 fL (80.0-100.0); Monocytes % (auto) 14.7 % (0.0-12.0); Neutrophils # (auto) 4.7 10 ^3/uL (1.6-8.6); Neutrophils % (auto) 75.3 % (37.0-80.0)
[2020-06-17 07:56] LABS: Potassium 3.9 mmol/L (3.5-5.1)
[2020-06-17] MEDS: Glucerna Carbsteady SHAKE Vanilla 8oz PO SCH ×2 (08:00→18:00)
[2020-06-17 08:03] LABS: Albumin 2.8 g/dL (3.4-5.0); BUN/Creatinine Ratio 15.8; Bilirubin, Total 0.6 mg/dL (0.2-1.0); Calcium 7.4 mg/dL (8.5-10.1); Total Protein 6.5 g/dL (6.4-8.2)
[2020-06-17] MEDS: INSULIN LISPRO (HUMAN) 100 UNITS/ML ML SC SCH (10:00)
[2020-06-17] MEDS: LACTULOSE 20Gm/30ML SOLN PO SCH ×3 (10:00→21:55)
[2020-06-17] MEDS: METOPROLOL TARTRATE 50 MG TAB PO SCH ×2 (10:43→21:44)
[2020-06-17] MEDS: MAGNESIUM OXIDE 400 MG TAB PO SCH (10:43)
[2020-06-17] MEDS: amLODIPine BESYLATE 5 MG TAB PO SCH (10:45)
[2020-06-17] MEDS ORDERED: LIDOCAINE 2%HCL (LOCAL ANESTH.) INJ 20ML MDV ONE (14:46)
[2020-06-17] MEDS ORDERED: MIDAZOLAM HCL 1MG/1ML-2 ML VIAL ONE (14:58)
[2020-06-17] MEDS ORDERED: fentaNYL CITRATE 100 MCG/2 ML VL ONE (14:58)
[2020-06-17] MEDS ORDERED: HEPARIN SODIUM (PORCINE) 5000 UNITS/ML 1ML VIAL ONE (15:42)
[2020-06-18 05:35] VITALS: BP 102/60
[2020-06-18 05:59] LABS: Basophils # (auto) 0 10 ^3/uL (0-0.2); Eosinophils # (auto) 0 10 ^3/uL (0-0.8); Monocytes # (auto) 0.7 10 ^3/uL (0-1.3); Red Blood Cells 4.67 10^6/uL (4.5-5.90)
[2020-06-18 06:02] LABS: Basophils % (auto) 0.5 % (0.0-2.0); Eosinophils % (auto) 0.5 % (0.0-7.0); Hematocrit 31.6 % (41.0-53.0); Lymphocytes # (auto) 0.4 10 ^3/uL (0.4-5.4); Lymphocytes % (auto) 7.7 % (10.0-50.0); Mean Corpuscular Hemoglobin 21.4 pg (28.0-32.0); Mean Corpuscular Hgb Conc. 31.7 g/dL (32.0-36.0); Mean Corpuscular Volume 67.7 fL (80.0-100.0); Monocytes % (auto) 12.3 % (0.0-12.0); Neutrophils # (auto) 4.6 10 ^3/uL (1.6-8.6); Platelet Count (auto) 169 10^3/uL (140-450); Red Cell Distribution Width 18.9 % (11.8-14.3); White Blood Cell 5.8 10^3/uL (4.4-10.8)
[2020-06-18 06:15] LABS: Albumin 2.7 g/dL (3.4-5.0); Calcium 7.5 mg/dL (8.5-10.1); Potassium 4.4 mmol/L (3.5-5.1)
[2020-06-18 06:19] LABS: Bilirubin, Total 0.6 mg/dL (0.2-1.0); Total Protein 6.5 g/dL (6.4-8.2)
[2020-06-18] MEDS ORDERED: SODIUM CHL 0.9% 1000 ML BAG XX ONE (07:00)
[2020-06-18] MEDS: Glucerna Carbsteady SHAKE Vanilla 8oz PO SCH ×3 (08:00→18:00)
[2020-06-18 08:39] LABS: Hepatitis B Surface Antigen Negative (Negative)
[2020-06-18 09:00] VITALS: BP 133/66
[2020-06-18] MEDS: LACTULOSE 20Gm/30ML SOLN PO SCH ×2 (10:00→21:25)
[2020-06-18] MEDS: INSULIN LISPRO (HUMAN) 100 UNITS/ML ML SC SCH (10:00)
[2020-06-18] MEDS: METOPROLOL TARTRATE 50 MG TAB PO SCH ×2 (10:39→21:26)
[2020-06-18] MEDS: amLODIPine BESYLATE 5 MG TAB PO SCH (10:39)
[2020-06-18] MEDS: MAGNESIUM OXIDE 400 MG TAB PO SCH (10:49)
[2020-06-18 13:00] VITALS: BP 111/56
[2020-06-18 13:42] LABS: Hepatitis A Ab IgM Negative
[2020-06-18 13:44] LABS: Hepatitis B Core IgM Negative
[2020-06-18 13:46] LABS: Hepatitis C Antibody Reactive (Negative)
[2020-06-18 16:54] VITALS: BP 111/65
[2020-06-18] MEDS ORDERED: EPOETIN ALFA 4,000 UNIT/ML VL SC ONE (21:00)
[2020-06-18 22:00] VITALS: BP 100/59
[2020-06-19] MEDS: HYDROcodone-ACET 5/325MG TAB PO PRN (02:38)
[2020-06-19 05:00] VITALS: BP 101/55
[2020-06-19 07:06] LABS: Basophils # (auto) 0 10 ^3/uL (0-0.2); Eosinophils # (auto) 0 10 ^3/uL (0-0.8); Hemoglobin 9.6 g/dL (13.5-17.5); Lymphocytes # (auto) 0.6 10 ^3/uL (0.4-5.4); Mean Corpuscular Hemoglobin 21.4 pg (28.0-32.0); Monocytes # (auto) 0.8 10 ^3/uL (0-1.3); White Blood Cell 5.3 10^3/uL (4.4-10.8)
[2020-06-19 07:09] LABS: Basophils % (auto) 0.6 % (0.0-2.0); Eosinophils % (auto) 0.5 % (0.0-7.0); Hematocrit 30.3 % (41.0-53.0); Lymphocytes % (auto) 11.1 % (10.0-50.0); Mean Corpuscular Hgb Conc. 31.8 g/dL (32.0-36.0); Mean Corpuscular Volume 67.4 fL (80.0-100.0); Monocytes % (auto) 15.2 % (0.0-12.0); Neutrophils # (auto) 3.9 10 ^3/uL (1.6-8.6); Neutrophils % (auto) 72.6 % (37.0-80.0); Nucleated Red Blood Cells % 0.2 %; Platelet Count (auto) 177 10^3/uL (140-450)
[2020-06-19 07:25] LABS: Potassium 4.4 mmol/L (3.5-5.1)
[2020-06-19 07:28] LABS: Albumin 2.9 g/dL (3.4-5.0); BUN/Creatinine Ratio 11.1; Calcium 7.7 mg/dL (8.5-10.1)
[2020-06-19 07:40] LABS: Bilirubin, Total 0.6 mg/dL (0.2-1.0); Total Protein 6.8 g/dL (6.4-8.2)
[2020-06-19 08:00] VITALS: BP 99/54
[2020-06-19] MEDS: Glucerna Carbsteady SHAKE Vanilla 8oz PO SCH ×3 (08:00→14:05)
[2020-06-19 09:00] VITALS: BP 99/54
[2020-06-19] MEDS: INSULIN LISPRO (HUMAN) 100 UNITS/ML ML SC SCH (10:00)
[2020-06-19] MEDS: LACTULOSE 20Gm/30ML SOLN PO SCH ×2 (10:00→22:00)
[2020-06-19] MEDS: amLODIPine BESYLATE 5 MG TAB PO SCH ×2 (10:00→13:58)
[2020-06-19] MEDS: METOPROLOL TARTRATE 50 MG TAB PO SCH ×3 (10:00→22:00)
[2020-06-19 13:00] VITALS: BP 125/76
[2020-06-19] MEDS: MAGNESIUM OXIDE 400 MG TAB PO SCH (13:59)
[2020-06-19 17:00] VITALS: BP 103/56
[2020-06-19 21:08] VITALS: BP 125/76
== END 2020-06-20 00:30 | DRG 194 ==
LOC: ER 06:20 → EDBD 06:20 → TELE 06:21 → TELE-WESTW 19:19 → TELE-EAST 06-17 17:20 → TELE-WESTW 06-17 17:40
PROVIDERS: ADMIT Internal Medicine; ATTEND Internal Medicine
PROC: 5A1D70Z Performance of Urinary Filtration, Intermittent, Less than 6 Hours Per Day (ICD-10-PCS; principal; 2020-06-10)
PROC: 5A1D70Z Performance of Urinary Filtration, Intermittent, Less than 6 Hours Per Day (ICD-10-PCS; 2020-06-11)
PROC: 5A1D70Z Performance of Urinary Filtration, Intermittent, Less than 6 Hours Per Day (ICD-10-PCS; 2020-06-13)
PROC: 5A1D70Z Performance of Urinary Filtration, Intermittent, Less than 6 Hours Per Day (ICD-10-PCS; 2020-06-16)
PROC: 0W9G30Z Drainage of Peritoneal Cavity with Drainage Device, Percutaneous Approach (ICD-10-PCS; 2020-06-17)
PROC: 0JH63XZ Insertion of Tunneled Vascular Access Device into Chest Subcutaneous Tissue and Fascia, Percutaneous Approach (ICD-10-PCS; 2020-06-17)
PROC: 02H633Z Insertion of Infusion Device into Right Atrium, Percutaneous Approach (ICD-10-PCS; 2020-06-17)
PROC: B548ZZA Ultrasonography of Superior Vena Cava, Guidance (ICD-10-PCS; 2020-06-17)
PROC: B5181ZA Fluoroscopy of Superior Vena Cava using Low Osmolar Contrast, Guidance (ICD-10-PCS; 2020-06-17)
PROC: 5A1D70Z Performance of Urinary Filtration, Intermittent, Less than 6 Hours Per Day (ICD-10-PCS; 2020-06-18)
DX: I13.2 Hypertensive heart and chronic kidney disease with heart failure and with stage 5 chronic kidney disease, or end stage renal disease (principal); N18.6 End stage renal disease; I50.22 Chronic systolic (congestive) heart failure; E11.22 Type 2 diabetes mellitus with diabetic chronic kidney disease; E83.51 Hypocalcemia; N30.00 Acute cystitis without hematuria; K74.60 Unspecified cirrhosis of liver; B19.20 Unspecified viral hepatitis C without hepatic coma; E78.5 Hyperlipidemia, unspecified; I25.10 Atherosclerotic heart disease of native coronary artery without angina pectoris; Z99.2 Dependence on renal dialysis; N17.9 Acute kidney failure, unspecified; N25.81 Secondary hyperparathyroidism of renal origin; D63.1 Anemia in chronic kidney disease; E11.40 Type 2 diabetes mellitus with diabetic neuropathy, unspecified; E11.65 Type 2 diabetes mellitus with hyperglycemia; E86.0 Dehydration; J44.9 Chronic obstructive pulmonary disease, unspecified; K40.90 Unilateral inguinal hernia, without obstruction or gangrene, not specified as recurrent; K80.20 Calculus of gallbladder without cholecystitis without obstruction; N43.3 Hydrocele, unspecified; R18.8 Other ascites; Z79.02 Long term (current) use of antithrombotics/antiplatelets; Z79.4 Long term (current) use of insulin; Z79.899 Other long term (current) drug therapy; Z82.49 Family history of ischemic heart disease and other diseases of the circulatory system; Z91.19 Patient's noncompliance with other medical treatment and regimen; Z95.1 Presence of aortocoronary bypass graft; E87.1 Hypo-osmolality and hyponatremia; J90 Pleural effusion, not elsewhere classified; E88.09 Other disorders of plasma-protein metabolism, not elsewhere classified; J98.11 Atelectasis; I25.2 Old myocardial infarction; Z20.828 Contact with and (suspected) exposure to other viral communicable diseases; Z88.8 Allergy status to other drugs, medicaments and biological substances; Z87.891 Personal history of nicotine dependence; Z79.82 Long term (current) use of aspirin; Z95.5 Presence of coronary angioplasty implant and graft
CPT/HCPCS: 10022; 36415; 71045; 76700; 76870; 76937; 76942; 80053; 80074; 81001; 82140; 82962; 83735; 84484; 85025; 85610; 85730; 87081; 90935; 93005; 96361; 96365; 96375; 97110; 97116; 97163; 97530; 99152; G0378; J0696; J0885; J1642; J1815; J2250

== ENCOUNTER 2021-06-12 14:34 | Inpatient (IN) | payer MEDICARE, MEDICAID ==
[~2021-06-12] VITALS: Ht 177.8 cm; Wt 83.6 kg
[~2021-06-12 14:34] MED LIST changes: -CLOP75TA41 PO; +CLOP75TA70 PO
[2021-06-12 16:14] LABS: Basophils # (auto) 0.1 10 ^3/uL (0-0.2); Eosinophils # (auto) 0 10 ^3/uL (0-0.8); Eosinophils % (auto) 0.8 % (0.0-7.0); Hematocrit 39.6 % (41.0-53.0); Hemoglobin 12.4 g/dL (13.5-17.5); Lymphocytes # (auto) 0.5 10 ^3/uL (0.4-5.4); Lymphocytes % (auto) 8.7 % (10.0-50.0); Mean Corpuscular Hemoglobin 25.8 pg (28.0-32.0); Mean Corpuscular Hgb Conc. 31.3 g/dL (32.0-36.0); Mean Corpuscular Volume 82.5 fL (80.0-100.0); Monocytes # (auto) 0.6 10 ^3/uL (0-1.3); Monocytes % (auto) 11.4 % (0.0-12.0); Neutrophils # (auto) 4.1 10 ^3/uL (1.6-8.6); Neutrophils % (auto) 78.1 % (37.0-80.0); Nucleated Red Blood Cells % 0.1 %; Red Blood Cells 4.81 10^6/uL (4.5-5.90); Red Cell Distribution Width 17.8 % (11.8-14.3); White Blood Cell 5.2 10^3/uL (4.4-10.8)
[2021-06-12 16:25] LABS: Albumin 2.5 g/dL (3.4-5.0); Calcium 7.6 mg/dL (8.5-10.1)
[2021-06-12 16:34] LABS: BUN/Creatinine Ratio 8.2; Bilirubin, Total 0.5 mg/dL (0.2-1.0); Total Protein 7.5 g/dL (6.4-8.2)
[2021-06-12 17:11] LABS: Potassium 5.9 mmol/L (3.5-5.1)
[2021-06-12] MEDS ORDERED: MORPHINE SULFATE 4 MG/ML SYR/VIAL IV PRN (22:30)
[2021-06-12] MEDS ORDERED: DOCUSATE SOD 100 MG CAP PO PRN (22:30)
[2021-06-12] MEDS ORDERED: NITROGLYCERIN 0.4 MG SL TAB SL PRN (22:30)
[2021-06-12] MEDS ORDERED: MORPHINE SULFATE INJECTION 2 MG/ML SYRG IV PRN (22:30)
[2021-06-12] MEDS ORDERED: ACETAMINOPHEN 325 MG TAB PO PRN (22:30)
[2021-06-12] MEDS ORDERED: ONDANSETRON HCL 4 MG/2 ML VIAL IV PRN (22:30)
[2021-06-13] VITALS (7 sets, daily range): BP systolic 107–118; BP diastolic 62–76
[2021-06-13] MEDS: BUMETANIDE 2.5mg/10ml (0.25 mg/ml) INJ IV SCH ×2 (06:06→18:17)
[2021-06-13] MEDS: ENOXAPARIN SOD 30 MG/0.3 ML SYRINGE SC SCH (09:33)
[2021-06-13 10:06] LABS: Basophils # (auto) 0 10 ^3/uL (0-0.2); Hematocrit 35.7 % (41.0-53.0); Lymphocytes # (auto) 0.4 10 ^3/uL (0.4-5.4); Nucleated Red Blood Cells % 0.1 %
[2021-06-13 10:09] LABS: Basophils % (auto) 0.9 % (0.0-2.0); Eosinophils # (auto) 0 10 ^3/uL (0-0.8); Eosinophils % (auto) 1.1 % (0.0-7.0); Hemoglobin 11.6 g/dL (13.5-17.5); Lymphocytes % (auto) 8.9 % (10.0-50.0); Mean Corpuscular Hemoglobin 26.8 pg (28.0-32.0); Mean Corpuscular Hgb Conc. 32.5 g/dL (32.0-36.0); Mean Corpuscular Volume 82.6 fL (80.0-100.0); Monocytes # (auto) 0.5 10 ^3/uL (0-1.3); Monocytes % (auto) 11.6 % (0.0-12.0); Neutrophils # (auto) 3.6 10 ^3/uL (1.6-8.6); Neutrophils % (auto) 77.5 % (37.0-80.0); Red Blood Cells 4.32 10^6/uL (4.5-5.90); Red Cell Distribution Width 17.3 % (11.8-14.3); White Blood Cell 4.7 10^3/uL (4.4-10.8)
[2021-06-13 10:27] LABS: Albumin 2.4 g/dL (3.4-5.0); Calcium 7.1 mg/dL (8.5-10.1); Potassium 5.1 mmol/L (3.5-5.1)
[2021-06-13 10:30] LABS: BUN/Creatinine Ratio 8.5; Bilirubin, Total 0.5 mg/dL (0.2-1.0); Total Protein 6.7 g/dL (6.4-8.2)
[2021-06-13] MEDS: Ensure HIGH Protein Chocolate 8oz Bottle PO SCH (18:16)
[2021-06-13 18:53] LABS: INR 1.25 (0.9-1.15); Partial Thromboplastin Time 29.9 sec (23.6-33.0)
[2021-06-13] MEDS ORDERED: BUMETANIDE 2.5mg/10ml (0.25 mg/ml) INJ IV ONE ×2 (19:00→20:15)
[2021-06-13] MEDS: TEMAZEPAM 15 MG CAP PO PRN (22:24)
[2021-06-14 05:00] VITALS: BP 116/67
[2021-06-14] MEDS: BUMETANIDE 2.5mg/10ml (0.25 mg/ml) INJ IV SCH ×2 (06:04→18:31)
[2021-06-14] MEDS: Ensure HIGH Protein Chocolate 8oz Bottle PO SCH ×3 (08:00→18:31)
[2021-06-14 09:00] VITALS: BP 122/74
[2021-06-14] MEDS: ENOXAPARIN SOD 30 MG/0.3 ML SYRINGE SC SCH (10:00)
[2021-06-14] MEDS ORDERED: SODIUM CHL 0.9% 1000 ML BAG XX ONE (10:15)
[2021-06-14 13:00] VITALS: BP 117/71
[2021-06-14 13:45] LABS: Hepatitis B Core IgM Negative
[2021-06-14 13:54] LABS: Hepatitis A Ab IgM Negative
[2021-06-14 13:57] LABS: Hepatitis C Antibody Positive (Negative)
[2021-06-14 17:00] VITALS: BP 131/76
[2021-06-14] MEDS ORDERED: ALBUMIN 25% 50 ML IV SCH (18:15)
[2021-06-14] MEDS: ALBUMIN 25% 100 ML IV SCH (21:23)
[2021-06-14] MEDS ORDERED: LORazepam 2MG/ML-1ML VIAL IV PRN (21:45)
[2021-06-14 22:00] VITALS: BP 120/68
[2021-06-15 00:07] LABS: Folate (Folic Acid) 6.75 ng/mL (5.38-24)
[2021-06-15] MEDS: TEMAZEPAM 15 MG CAP PO PRN (00:15)
[2021-06-15] MEDS: ALBUMIN 25% 100 ML IV SCH ×2 (03:31→12:33)
[2021-06-15 05:00] VITALS: BP 103/59
[2021-06-15] MEDS: BUMETANIDE 2.5mg/10ml (0.25 mg/ml) INJ IV SCH ×2 (06:18→18:19)
[2021-06-15] MEDS ORDERED: SODIUM CHL 0.9% 1000 ML BAG XX ONE (07:00)
[2021-06-15 07:08] LABS: Albumin 2.7 g/dL (3.4-5.0); BUN/Creatinine Ratio 8.3; Calcium 7.2 mg/dL (8.5-10.1); Potassium 5.4 mmol/L (3.5-5.1)
[2021-06-15 09:00] VITALS: BP 108/57
[2021-06-15] MEDS: Ensure HIGH Protein Chocolate 8oz Bottle PO SCH ×3 (10:13→18:20)
[2021-06-15] MEDS: ENOXAPARIN SOD 30 MG/0.3 ML SYRINGE SC SCH (10:13)
[2021-06-15 12:30] VITALS: BP 116/62
[2021-06-15 17:00] VITALS: BP 116/63
[2021-06-15] MEDS ORDERED: cefTRIAXone 1GM/50ML D5W 50 ML IV ONE (20:00)
[2021-06-15] MEDS ORDERED: EPOETIN ALFA-EPBX 4,000 UNIT/ML VIAL SC ONE (21:00)
[2021-06-16] MEDS: TEMAZEPAM 15 MG CAP PO PRN (01:37)
[2021-06-16 05:04] VITALS: BP 115/72
[2021-06-16] MEDS: BUMETANIDE 2.5mg/10ml (0.25 mg/ml) INJ IV SCH (06:01)
[2021-06-16] MEDS ORDERED: SODIUM CHL 0.9% 1000 ML BAG XX ONE (07:00)
[2021-06-16 08:46] VITALS: BP 118/69
[2021-06-16] MEDS ORDERED: cefTRIAXone 1GM/50ML D5W 50 ML IV SCH (09:00)
[2021-06-16] MEDS: ENOXAPARIN SOD 30 MG/0.3 ML SYRINGE SC SCH (09:46)
[2021-06-16] MEDS: Ensure HIGH Protein Chocolate 8oz Bottle PO SCH ×2 (09:47→12:52)
[2021-06-16 13:29] VITALS: BP 123/76
[2021-06-16 13:45] VITALS: BP 118/69
== END 2021-06-16 14:15 | disposition home or self-care (01) | DRG 291 ==
LOC: EDBD 14:34 → ER 14:34 → TELE 22:17 → TELE-CENTR 06-13 01:54
PROVIDERS: ADMIT Internal Medicine; ATTEND Internal Medicine
PROC: 0W9G3ZZ Drainage of Peritoneal Cavity, Percutaneous Approach (ICD-10-PCS; principal; 2021-06-14)
PROC: 5A1D70Z Performance of Urinary Filtration, Intermittent, Less than 6 Hours Per Day (ICD-10-PCS; 2021-06-14)
PROC: 4B02XTZ Measurement of Cardiac Defibrillator, External Approach (ICD-10-PCS; 2021-06-16)
DX: I13.2 Hypertensive heart and chronic kidney disease with heart failure and with stage 5 chronic kidney disease, or end stage renal disease (principal); N18.6 End stage renal disease; I50.33 Acute on chronic diastolic (congestive) heart failure; I45.2 Bifascicular block; R18.8 Other ascites; F11.20 Opioid dependence, uncomplicated; K74.60 Unspecified cirrhosis of liver; I27.20 Pulmonary hypertension, unspecified; I25.10 Atherosclerotic heart disease of native coronary artery without angina pectoris; B19.20 Unspecified viral hepatitis C without hepatic coma; Z20.822 Contact with and (suspected) exposure to COVID-19; R33.8 Other retention of urine; E11.22 Type 2 diabetes mellitus with diabetic chronic kidney disease; G25.3 Myoclonus; G89.29 Other chronic pain; R26.9 Unspecified abnormalities of gait and mobility; M54.50 Low back pain, unspecified; E11.41 Type 2 diabetes mellitus with diabetic mononeuropathy; E11.42 Type 2 diabetes mellitus with diabetic polyneuropathy; F17.200 Nicotine dependence, unspecified, uncomplicated; Z79.4 Long term (current) use of insulin; Z99.2 Dependence on renal dialysis; Z95.1 Presence of aortocoronary bypass graft; Z79.899 Other long term (current) drug therapy; Z82.49 Family history of ischemic heart disease and other diseases of the circulatory system; Z95.810 Presence of automatic (implantable) cardiac defibrillator; R33.9 Retention of urine, unspecified
CPT/HCPCS: 36415; 71045; 76700; 76942; 80048; 80053; 80074; 82040; 82140; 82607; 82746; 83880; 84155; 84165; 84443; 84484; 85025; 85610; 85730; 87081; 87426; 90935; 93005; 93306; 97163; G0378; J0696; P9047

== ENCOUNTER 2021-07-08 14:50 | Inpatient (IN) | payer MEDICARE, MEDICAID ==
[~2021-07-08] VITALS: Ht 30.5 cm; Wt 0.5 kg
[2021-07-08 16:20] VITALS: BP 134/64
[2021-07-08 16:30] LABS: Albumin 3.2 g/dL (3.4-5.0); Basophils # (auto) 0.1 10 ^3/uL (0-0.2); Calcium 7.5 mg/dL (8.5-10.1); Hemoglobin 11.7 g/dL (13.5-17.5); Lymphocytes # (auto) 0.6 10 ^3/uL (0.4-5.4); Neutrophils # (auto) 5.7 10 ^3/uL (1.6-8.6); Nucleated Red Blood Cells % 0.1 %; Red Blood Cells 4.38 10^6/uL (4.5-5.90)
[2021-07-08 16:31] LABS: Basophils % (auto) 0.9 % (0.0-2.0); Eosinophils # (auto) 0.1 10 ^3/uL (0-0.8); Lymphocytes % (auto) 9.2 % (10.0-50.0); Mean Corpuscular Hemoglobin 26.8 pg (28.0-32.0); Mean Corpuscular Hgb Conc. 31.7 g/dL (32.0-36.0); Mean Corpuscular Volume 84.6 fL (80.0-100.0); Monocytes # (auto) 0.4 10 ^3/uL (0-1.3); Neutrophils % (auto) 82.9 % (37.0-80.0); Red Cell Distribution Width 17.7 % (11.8-14.3); White Blood Cell 6.8 10^3/uL (4.4-10.8)
[2021-07-08 16:34] LABS: Bilirubin, Total 0.4 mg/dL (0.2-1.0)
[2021-07-08 16:42] LABS: INR 1.2 (0.9-1.15)
[2021-07-08 17:28] LABS: Potassium 5.8 mmol/L (3.5-5.1)
[2021-07-08] MEDS ORDERED: ACETAMINOPHEN 325 MG TAB PO PRN (18:30)
[2021-07-08] MEDS ORDERED: MORPHINE SULFATE INJECTION 2 MG/ML SYRG IV PRN ×2 (18:30)
[2021-07-08] MEDS ORDERED: DOCUSATE SOD 100 MG CAP PO PRN (18:30)
[2021-07-08] MEDS ORDERED: NITROGLYCERIN 0.4 MG SL TAB SL PRN (18:30)
[2021-07-08] MEDS ORDERED: ONDANSETRON HCL 4 MG/2 ML VIAL IV PRN (18:30)
[2021-07-08] MEDS ORDERED: HYDROcodone-ACET 5/325MG TAB PO PRN (18:30)
[2021-07-08] MEDS ORDERED: TEMAZEPAM 15 MG CAP PO PRN (18:30)
[2021-07-08] MEDS ORDERED: DEXTROSE (50%) 50ML SYRG IV ONE (19:00)
[2021-07-08] MEDS ORDERED: SODIUM BICARBONATE 8.4% INJ 50ML SYRINGE IV ONE (19:00)
[2021-07-08] MEDS ORDERED: InsuLIN REG 1unit/0.01ml Soln (100units/ml) IV ONE (19:00)
[2021-07-08] MEDS ORDERED: CALCIUM GLUC 1,000mg/50ml-NS 50 ML IV ONE (19:00)
[2021-07-08] MEDS ORDERED: ASCORBIC ACID 500 MG TAB PO SCH (22:00)
[2021-07-09] MEDS ORDERED: ZINC SULFATE 220mg CAP or TAB PO SCH (10:00)
[2021-07-09] MEDS ORDERED: MULTIPLE VITAMIN TAB PO SCH (10:00)
== END 2021-07-08 22:00 | disposition left against medical advice (07) | DRG 604 ==
LOC: EDBD 14:50 → ER 14:50 → TELE 18:20
PROVIDERS: ADMIT Internal Medicine; ATTEND Internal Medicine
DX: S80.02XA Contusion of left knee, initial encounter (principal); N18.6 End stage renal disease; I13.2 Hypertensive heart and chronic kidney disease with heart failure and with stage 5 chronic kidney disease, or end stage renal disease; E87.70 Fluid overload, unspecified; E11.22 Type 2 diabetes mellitus with diabetic chronic kidney disease; I25.10 Atherosclerotic heart disease of native coronary artery without angina pectoris; I50.9 Heart failure, unspecified; J44.9 Chronic obstructive pulmonary disease, unspecified; S80.01XA Contusion of right knee, initial encounter; Z82.49 Family history of ischemic heart disease and other diseases of the circulatory system; Z53.29 Procedure and treatment not carried out because of patient's decision for other reasons; Z20.822 Contact with and (suspected) exposure to COVID-19; K74.60 Unspecified cirrhosis of liver; E66.9 Obesity, unspecified; Z71.3 Dietary counseling and surveillance; Y99.8 Other external cause status; Y93.89 Activity, other specified; Z88.8 Allergy status to other drugs, medicaments and biological substances; Z95.1 Presence of aortocoronary bypass graft; Z99.2 Dependence on renal dialysis; V89.2XXA Person injured in unspecified motor-vehicle accident, traffic, initial encounter; Y92.410 Unspecified street and highway as the place of occurrence of the external cause
CPT/HCPCS: 36415; 70450; 71045; 71250; 72125; 73562; 74176; 80053; 83880; 84484; 85025; 85610; 87426; 93005; G0378